=== PATIENT | male | born 1965 | race Caucasian/White ===

== ENCOUNTER 2022-10-29 09:14 | Outpatient (OUT) | payer OTHER, SELFPAY ==
--- NOTE | 2022-10-29 09:30 | XR_ITS ---
[address] [address] Patient Name: PHYLLIS VILLALOBOS MRN: [id number] date: 1965 Sex: M Assigned Patient Location: RAD Current Patient Location: RAD Accession/Order Number: [id number] Exam Date: 10/29/2022 09:29 Report Date: 10/29/2022 10:10 At the request of: MATT JOY Procedure: XR foot LT min 3V PROCEDURE: XR ankle LT min 3V, XR foot LT min 3V COMPARISON: 10/22/2022 HISTORY: LEFT ANKLE PAIN FINDINGS: BONES:No acute fracture or dislocation. Enthesopathic spurring of the calcaneus, mild at the Achilles, moderate at the plantar aponeurosis SOFT TISSUES:Negative. No visible soft tissue swelling. EFFUSION:None visible. OTHER: Negative. XR/XR foot LT min 3V IMPRESSION: Enthesopathic spurring of the calcaneus No acute abnormality of the foot or ankle Electronically authenticated by: IVIS ROBERSON Date: 10/29/2022 10:10
--- NOTE | 2022-10-29 09:30 | XR_ITS ---
The [address] [address] Patient Name: PHYLLIS VILLALOBOS MRN: [id number] date: 1965 Sex: M Assigned Patient Location: RAD Current Patient Location: RAD Accession/Order Number: [id number] Exam Date: 10/29/2022 09:29 Report Date: 10/29/2022 10:10 At the request of: MATT JOY Procedure: XR ankle LT min 3V PROCEDURE: XR ankle LT min 3V, XR foot LT min 3V COMPARISON: 10/22/2022 HISTORY: LEFT ANKLE PAIN FINDINGS: BONES:No acute fracture or dislocation. Enthesopathic spurring of the calcaneus, mild at the Achilles, moderate at the plantar aponeurosis SOFT TISSUES:Negative. No visible soft tissue swelling. EFFUSION:None visible. OTHER: Negative. XR/XR ankle LT min 3V IMPRESSION: Enthesopathic spurring of the calcaneus No acute abnormality of the foot or ankle Electronically authenticated by: IVIS ROBERSON Date: 10/29/2022 10:10
== END 2022-10-29 09:15 | disposition home or self-care (01) ==
LOC: RAD 09:14
PROVIDERS: Family Provider Family Medicine; PCP Family Medicine; Visit Provider Podiatrist Foot & Ankle Surgery
DX: M25.572 Pain in left ankle and joints of left foot (principal); M77.32 Calcaneal spur, left foot
CPT/HCPCS: 73610; 73630

== ENCOUNTER 2022-11-03 15:37 | Outpatient (RCR) | payer OTHER, SELFPAY | END 2022-11-14 11:23 | disposition home or self-care (01) | LOC: PT 15:37 | PROVIDERS: Family Provider Family Medicine; PCP Family Medicine; Visit Provider Student in an Organized Health Care Education/Training Program | DX: M72.2 Plantar fascial fibromatosis (principal); M79.672 Pain in left foot | CPT/HCPCS: 97010; 97014; 97035; 97110; 97140; 97161 ==

== ENCOUNTER 2022-12-03 07:40 | Outpatient (OUT) | payer OTHER, SELFPAY ==
--- NOTE | 2022-12-03 07:52 | ECG_ITS ---
The [facility] Test Date: 2022-12-03 Pat Name: PHYLLIS VILLALOBOS Department: Room: - Gender: Male Digital Account Manager: : 1965 Requested By: MATT JOY Order Number: [id number] Reading MD: NATY RODRIGUEZ Measurements Intervals [place] Rate: 67 P: 62 ND: 172 QRS: -10 QRSD: 96 T: 27 QT: 378 QTc: 401 Interpretive Statements SINUS RHYTHM Baseline artifact present No previous ECG available for comparison Electronically Signed On 12-04-2022 7:07:14 EDT by NATY RODRIGUEZ
--- NOTE | 2022-12-03 08:47 | P.GSHP_ITS ---
History of Present Illness History of Present Illness Chief complaint: planter fascial fibromatosis Narrative: Patient presents for preadmission testing. Please see HPI from Dr. Bhat dated 11/19/2022. Review of Systems ROS Narrative REVIEW OF SYSTEMS: Negative except as stated in HPI, ten or more systems reviewed. Constitutional: No fever , chills, weakness ENT: No sore throat or epistaxis Cardiovascular: No edema, chest pain, palpitations, or activity intolerance Respiratory: No shortness of breath, cough, or wheezing Gastrointestinal: No abdominal pain, constipation, diarrhea, or vomiting Genitourinary: No dysuria or hematuria Neurological: No numbness, tingling, weakness, or headache Psychiatric: No mood changes PFSH PFS Medical History (Updated 12/03/22 @ 08:31 by Rita Holt NP) Surgical History (Updated 12/03/22 @ 08:31 by Rita Holt NP) Family History (Updated 12/03/22 @ 08:31 by Rita Holt NP) Other Family history of aneurysm Family history of diabetes mellitus Family history of heart disease Family history of hypertension Family history of lung cancer Family history of myocardial infarction Social History (Updated 12/03/22 @ 08:23 by Rita Holt NP) Within the past year, how often did you have a drink containing alcohol: 2-4 times a month Smoking status: Current every day smoker What tobacco products do you use: cigarettes Pack-years instructions: Please document either packs per day or cigarettes per day in order for pack years to calculate correctly. If using both packs per day and cigarettes per day, please make sure that they denote the same thing. If they differ, pack- years will calculate based on packs per day. 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[employer] Highest level of school completed/degree received: high school graduate Meds Home Medications and Allergies Home Medications Medication Instructions Recorded Confirmed Type tizanidine 4 mg capsule 4 mg PO BID PRN muscle spasticity 12/03/22 12/03/22 History Allergies Allergy/AdvReac Type Severity Reaction Status Date / Time metoclopramide [From Reglan] Allergy Hives Verified 12/03/22 08:20 NSAIDS (Non-Steroidal Allergy acid reflux Verified 12/03/22 08:20 Anti-Inflamma Exam Narrative Exam Narrative: Constitutional: Awake, alert, comfortable, well-appearing, nontoxic, interactive, vital signs as charted Head: Normocephalic, atraumatic Neck: Supple, normal appearance, normal range of motion, no meningeal signs, no lymphadenopathy Respiratory: No respiratory distress, breath sounds clear Cardiovascular: Regular rate and rhythm, strong and regular heart tones Psychiatric: Oriented ?3, normal affect Assessment and Plan Assessment and Plan (1) Ankle contracture: (2) Ankle pain: (3) Foot pain: (4) Plantar fascial fibromatosis: Plan Left endoscopic plantar fasciotomy, gastrocnemius recession scheduled with Dr. Bhat 12/11/2022.
== END 2022-12-03 07:41 | disposition home or self-care (01) ==
PROVIDERS: Family Provider Family Medicine; PCP Family Medicine; Visit Provider Podiatrist Foot & Ankle Surgery
DX: Z01.810 Encounter for preprocedural cardiovascular examination (principal); M72.2 Plantar fascial fibromatosis; M24.572 Contracture, left ankle
CPT/HCPCS: 93005; G0463

== ENCOUNTER 2022-12-11 06:32 | Day surgery (SDC) | payer OTHER, SELFPAY ==
[2022-12-03 08:46] VITALS: BP 127/78; PULSE 75; RESP 16; TEMP 36.4; O2SAT 97; BMI 26.3
[2022-12-11] VITALS (12 sets, daily range): BP systolic 108–150; BP diastolic 80–96; PULSE 57–73; RESP 12–24; TEMP 36.1–36.4; O2SAT 94–98; BMI 26.0
[2022-12-11 07:03] LABS: Glucometer 108 mg/dL (74-106)
[2022-12-11] MEDS: LACTATED RINGER'S SOLUTION 1,000 ML 50 ML IV (07:03)
[2022-12-11] MEDS: CEFAZOLIN SODIUM/DEXTROSE,ISO 2 GM/50 ML PIGGYBACK IV (07:30)
[2022-12-11] MEDS: BUPIVACAINE HCL 0.5% PF 50 MG/10 ML VIAL 20 ML INJ (08:23)
[2022-12-11] MEDS: BETAMETHASONE ACE/BETAMETHASONE SOD PHOS 30 MG/5 ML 12 MG IM (08:27)
[2022-12-11 08:53] LABS: Glucometer 103 mg/dL (74-106)
[2022-12-11] MEDS: HYDROMORPHONE HCL 0.5 MG/0.5 ML SYRINGE IV ×2 (09:10→09:17)
--- NOTE | 2022-12-11 09:26 | PC.NURSE ---
Medicated for pain as ordered
--- NOTE | 2022-12-11 09:31 | PC.NURSE ---
Medicated with IV Dilaudid as ordered for pain
--- NOTE | 2022-12-11 09:56 | PM.ORONB ---
Brief Operative Note Date of procedure: 12/11/22 Pre-op diagnosis: left plantar fasciitis, equinus Post-op diagnosis: same as pre-op Procedure: PROCEDURES PERFORMED: left endoscopic plantar fasciotomy, Juma gastrocnemius recession INTRAOPERATIVE FINDINGS: Findings consistent with diagnosis. Plantar fascia thickened and under tension. Ankle joint dorsiflexion prior to the procedure was to neutral but not past with the knee extended. Dorsiflexion improved to ten degrees following gastrocnemius recession. PROCEDURE IN DETAIL: Patient was identified in pre op and consent was reviewed. Correct side and site were identified and marked. Pre-op antibiotics were started. Patient was brought to OR suite and place on table in a supine position. General anesthesia was administered. Tourniquet applied. Operative extremity was prepped and draped in usual sterile fashion. Formal time-out was performed and the foot/ankle were exsanguinated and tourniquet inflated. A longitudinal incision over the medial aspect of the calf two finger breadths posterior to the posterior aspect of tibia was performed. Combination sharp and blunt dissection with all bleeders being coagulated gained access to the gastrocnemius aponeurosis. Once the aponeurosis was isolated a speculum was inserted from the medial to lateral position just superficial to the aponeurosis. The speculum allowed full visualization of the aponeurosis and the foot was held in maximal dorsiflexed position. A fifteen blade was used to transversely incise the gastrocnemius fascia to two separate location (one proximal and one distal) followed by release of the soleus fascia. 10 degrees of ankle joint dorsiflexion was obtained. The area was flushed with copious sterile saline and skin was closed in layers. Stab incision over the medial aspect of the in-step at the glabrous skin junction was used followed by blunt dissection and the medial band of the plantar fascia was identified. Trochar and cannula were then placed medial to lateral. A lateral stab incision was made to allow passage of the trochar and cannula. Camera was inserted into the lateral portal and a hook blade was placed into the medial portal. 50% of the plantar fascia was released and healthy muscle was noted. The site was flushed with saline and instrumentation was removed. Closure with nylon suture was then undertaken. A dry sterile dressing was placed followed by CAM boot. Patient tolerated the procedure and anesthesia well and was transferred to the recovery room with vital signs stable and brisk capillary refill to the toes. POSTOPERATIVE PLAN:Discharge home under family's care Post op instructions provided verbally and written prescription(s) were placed in chart Weightbearing as tolerated in cam boot for three weeks Patient should sleep in cam boot or night splint Follow-up in 1-3 weeks Surgeon: Julio César Bhat [employer] Chemist: Jose Coronado Estimated blood loss (mL): 10 Pathology: none sent Condition: stable Disposition: PACU Preoperative Details Reason for procedure: patient is a 57-year-old male who has had left plantar heel pain for over four months. He initially was treated by an outside hot saw helper with injections, home exercise, NSAIDs and home stretching program. He presented to us for 2nd opinion and initially was treated nonoperatively with physical therapy which only helped his pain by 10-20 percent. An MRI was obtained which confirmed plantar fasciitis. The patient wished to proceed with surgical intervention and he was educated all potential risks and benefits.
--- NOTE | 2022-12-11 09:56 | PC.NURSE ---
Medicated with oral pain medication as ordered for foot pain
== END 2022-12-11 10:30 | disposition home or self-care (01) ==
PROVIDERS: Family Provider Family Medicine; PCP Family Medicine; Visit Provider Podiatrist Foot & Ankle Surgery
PROC: (CPT 27687; principal; 2022-12-11 07:30)
DX: M72.2 Plantar fascial fibromatosis (principal); M24.572 Contracture, left ankle; F17.210 Nicotine dependence, cigarettes, uncomplicated; K21.9 Gastro-esophageal reflux disease without esophagitis; M25.572 Pain in left ankle and joints of left foot
CPT/HCPCS: 27687; 29893; 36415; 82948; J0702; J1170; J2704

== ENCOUNTER 2023-10-22 13:38 | Outpatient (OUT) | payer OTHER, SELFPAY ==
--- NOTE | 2023-10-22 | XR_ITS ---
The [address] [address] Patient Name: PHYLLIS VILLALOBOS MRN: [id number] date: 1965 Sex: M Assigned Patient Location: Current Patient Location: Accession/Order Number: [id number] Exam Date: 10/22/2023 13:40 Report Date: 10/23/2023 04:55 At the request of: MARITZA MURO Procedure: XR foot LT min 3V PROCEDURE: XR foot LT min 3V HISTORY: LEFT FOOT PAIN ; 5th metatarsal pain following injury COMPARISON: XR foot left 10/29/2022 FINDINGS: BONES:New since small ossification along anterior lateral margin of calcaneus. SOFT TISSUES:No visible soft tissue swelling. EFFUSION:None visible. OTHER: Negative. XR/XR foot LT min 3V IMPRESSION: 1. Suspect tiny cortical avulsion fracture from anterior lateral margin of calcaneus. Unremarkable 5th metatarsal. Electronically authenticated by: YOSSI WRIGHT Date: 10/23/2023 04:55
== END 2023-10-22 13:39 | disposition home or self-care (01) ==
PROVIDERS: Family Provider Family Medicine; PCP Family Medicine; Visit Provider Physician Assistant
DX: M72.2 Plantar fascial fibromatosis (principal); M79.672 Pain in left foot
CPT/HCPCS: 73630

== ENCOUNTER 2023-11-10 15:17 | Outpatient (OUT) | payer OTHER, SELFPAY ==
--- NOTE | 2023-11-10 | XR_ITS ---
The [address] [address] Patient Name: PHYLLIS VILLALOBOS MRN: [id number] date: 1965 Sex: M Assigned Patient Location: Current Patient Location: Accession/Order Number: [id number] Exam Date: 11/10/2023 15:23 Report Date: 11/12/2023 06:43 At the request of: MATT JOY Procedure: XR foot LT min 3V PROCEDURE: XR foot LT min 3V HISTORY: LEFT FOOT PAIN ; second metatarsal pain; stress fracture? COMPARISON: None. FINDINGS: BONES:Stable tiny ossification adjacent anterior lateral margin of calcaneus; possibly sequela of remote injury. No acute fracture, dislocation, or periosteal reaction with specific attention to the second metatarsal. SOFT TISSUES:No visible soft tissue swelling. EFFUSION:None visible. OTHER: Negative. XR/XR foot LT min 3V IMPRESSION: 1. No acute bone abnormality or significant degenerative changes to account for patient's symptoms. No findings to suggest stress fracture of second metatarsal. Electronically authenticated by: YOSSI WRIGHT Date: 11/12/2023 06:43
== END 2023-11-10 15:18 | disposition home or self-care (01) ==
LOC: EC 15:17
PROVIDERS: Family Provider Family Medicine; PCP Family Medicine; Visit Provider Podiatrist Foot & Ankle Surgery
DX: M79.672 Pain in left foot (principal)
CPT/HCPCS: 73630

== ENCOUNTER 2024-02-17 13:49 | Outpatient (OUT) | payer OTHER, SELFPAY ==
--- NOTE | 2024-02-17 13:52 | XR_ITS ---
The [address] [address] Patient Name: PHYLLIS VILLALOBOS MRN: [id number] date: 1965 Sex: M Assigned Patient Location: [facility] Current Patient Location: Accession/Order Number: [id number] Exam Date: 02/17/2024 13:58 Report Date: 02/20/2024 07:43 At the request of: MATT JOY Procedure: XR foot RT min 3V PROCEDURE: XR foot RT min 3V HISTORY: Right Foot Pain COMPARISON: None. FINDINGS: BONES:Mild degenerative change of the first metatarsophalangeal joint. Small calcaneal plantar spur. SOFT TISSUES:No visible soft tissue swelling. EFFUSION:None visible. OTHER: Negative. XR/XR foot RT min 3V IMPRESSION: 1. Mild degenerative changes. 2. No acute bone abnormality. Electronically authenticated by: YOSSI WRIGHT Date: 02/20/2024 07:43
--- OUTSIDE RECORDS SUMMARY | 2024-02-17 14:08 | XMS_ITS | CCD ---
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 Role Phone Kevin Calvillo Admitting Unavailable Kevin Calvillo Attending Unavailable Denis Rahman Primary Care Unavailable DO Denis Rahman Primary Care Provider JOE Calvillo Attending Provider Geoffrey Downing Attending Unavailable ALVAREZ TIERNEY Attending Unavailoliver e Clinmanda, Nicki Aleman Attending Unavailable TARASUte Attending Unavailable TRISHAJass Attending Unavailable TRISHAJass Attending Unavailable Clingman, Nicki Aleman Attending Unavailable Clingman, Nicki Aleman Admitting Unavailable AleksValdemar Attending Unavailable NICKI DIALLO Referring Unavailable DIALLO, NICKI Faulkner Attending Unavailable NICKI DIALLO Referring Unavailable Allergies Allergy Classification Reported Allergen(s) Allergy Type Date of Onset Reaction(s) Facility (1 source) Unable to Assess Drug allergy (disorder) [address] [place] [address] Repository (1 source) Metoclopramide; Translations: [Reglan] Drug Allergy [facility] Repository (1 source) NSAIDs; Translations: [NSAIDs] Propensity to adverse reactions (disorder) [facility] Repository (1 source) Prochlorperazine; Translations: [Compazine] Drug Allergy [facility] Repository (1 source) nonsteroidal anti-inflammatory agents; Translations: [nonsteroidal anti-inflammatory agents] Propensity to adverse reactions (disorder) [facility] Repository Results Test Name Value Interpretation Reference Range Facility Pain Mgt Drug Panel, Hi Res, Uron 08-14-2023 6-acetylmorphine (cutoff 20 ng/mL) Not detected [facility] Comment on above: Result Comment: INTE RPRETIVE INFORMATION:6-acetylmorphine, U Positive Cutoff: 20 ng/mL Methodology: Mass Spectrometry 7-Aminoclonazepam (cutoff 40 ng/mL) Not detected [facility] Comment on above: Result Comment: INTE RPRETIVE INFORMATION:7-Aminoclonazepam, U Positive Cutoff: 40 ng/mL Methodology: Mass Spectrometry Mihsr-SG-Kqqsodvqen (cutoff 20 ng/mL) Not detected [facility] Comment on above: Result Comment: INTE RPRETIVE INFORMATION:Vyknx-VI-Zhtbonqrnw, U Positive Cutoff: 20 ng/mL Methodology: Mass Spectrometry Mulkl-CA-Xhfcrfksw (cutoff 20 ng/mL) Not detected [facility] Comment on above: Result Comment: INTE RPRETIVE INFORMATION:Sybra-TY-Dhahbusfm, U Positive Cutoff: 20 ng/mL Methodology: Mass Spectrometry Alprazolam (cutoff 40 ng/mL) Not detected [facility] Comment on above: Result Comment: INTE RPRETIVE INFORMATION:Alprazolam, U Positive Cutoff: 40 ng/mL Methodology: Mass Spectrometry Amphetamine (cutoff 100 ng/mL) Not detected [facility] Comment on above: Result Comment: INTE RPRETIVE INFORMATION:Amphetamine, U Positive Cutoff: 50 ng/mL Methodology: Mass Spectrometry Barbiturates (cutoff 200 ng/mL) Negative [facility] Comment on above: Result Comment: Pres umptive negative by immunoassay. Testing by mass spectrometry is available on request. INTERPRETIVE INFORMATION:Barbiturates Screen, U Positive Cutoff: 200 ng/mL Methodology: Immunoassay Benzoylecgonine Ql (U) Negative [facility] Comment on above: Result Comment: Pres umptive negative by immunoassay. Testing by mass spectrometry is available on request. INTERPRETIVE INFORMATION:Cocaine Screen, U Positive Cutoff: 150 ng/mL Methodology: Immunoassay Buprenorphine (cutoff 5 ng/mL) Not detected [facility] Comment on above: Result Comment: INTE RPRETIVE INFORMATION:Buprenorphine, U Positive Cutoff: 5 ng/mL Methodology: Mass Spectrometry Carisoprodol (cutoff 100 ng/mL) Negative [facility] Comment on above: Result Comment: Pres umptive negative by immunoassay. Testing by mass spectrometry is available on request. INTERPRETIVE INFORMATION: Carisoprodol Screen, U Positive Cutoff: 100 ng/mL Methodology: Immunoassay The carisoprodol immunoassay has cross-reactivity to carisoprodol and meprobamate. Clonazepam (cutoff 20 ng/mL) Not detected [facility] Comment on above: Result Comment: INTE RPRETIVE INFORMATION:Clonazepam, U Positive Cutoff: 20 ng/mL Methodology: Mass Spectrometry Codeine (cutoff 40 ng/mL) Not detected [facility] Comment on above: Result Comment: INTE RPRETIVE INFORMATION: Codeine, U Positive Cutoff: 40 ng/mL Methodology: Mass Spectrometry Creatinine, Urine 26.1 mg/dL [facility]0 [facility] Diazepam (cutoff 50 ng/mL) Not detected [facility] Comment on above: Result Comment: INTE RPRETIVE INFORMATION:Diazepam, U Positive Cutoff: 50 ng/mL Methodology: Mass Spectrometry EER Pain Mgt Drug Panel High Res/EMIT U See Note [facility] Comment on above: Result Comment: Auth orized individuals can access the [employer] Enhanced Report using the following link: [email or web address] Performed By: [facility] [address] [place] [id number] Product Mgr: Sanjiv Diaz MD, PhD CLIA Number: [id number] Ethyl Glucuronide (cutoff 500 ng/mL) Negative [facility] Comment on above: Result Comment: Pres umptive negative by immunoassay. Testing by mass spectrometry is available on request. INTERPRETIVE INFORMATION:Ethyl Glucuronide Screen, U Positive Cutoff: 500 ng/mL Methodology: Immunoassay Fentanyl (cutoff 2 ng/mL) Not detected [facility] Comment on above: Result Comment: INTE RPRETIVE INFORMATION:Fentanyl, U Positive Cutoff: 2 ng/mL Methodology: Mass Spectrometry Gabapentin (cutoff 100 ng/mL) Not detected [facility] Comment on above: Result Comment: INTE RPRETIVE INFORMATION:Gabapentin, U Positive Cutoff: 3,000 ng/mL Methodology: Mass Spectrometry Hydrocodone (cutoff 40 ng/mL) Not detected [facility] Comment on above: Result Comment: INTE RPRETIVE INFORMATION:Hydrocodone, U Positive Cutoff: 40 ng/mL Methodology: Mass Spectrometry Hydromorphone (cutoff 40 ng/mL) Not detected [facility] Comment on above: Result Comment: INTE RPRETIVE INFORMATION:Hydromorphone, U Positive Cutoff: 20 ng/mL Methodology: Mass Spectrometry Lorazepam (cutoff 60 ng/mL) Not detected [facility] Comment on above: Result Comment: INTE RPRETIVE INFORMATION:Lorazepam, U Positive Cutoff: 60 ng/mL Methodology: Mass Spectrometry Marijuana Metabolite (cutoff 20 ng/mL) Negative [facility] Comment on above: Result Comment: Pres umptive negative by immunoassay. Testing by mass spectrometry is available on request. INTERPRETIVE INFORMATION: THC (Cannabinoids) Screen, U Positive Cutoff: 50 ng/mL Methodology: Immunoassay MDA (cutoff 200 ng/mL) Not detected [facility] Comment on above: Result Comment: INTE RPRETIVE INFORMATION:MDA, U Positive Cutoff: 200 ng/mL Methodology: Mass Spectrometry MDEA-Blossom (cutoff 200 ng/mL) Not detected [facility] Comment on above: Result Comment: INTE RPRETIVE INFORMATION:MDEA, U Positive Cutoff: 200 ng/mL Methodology: Mass Spectrometry MDMA-Ecstasy (cutoff 200 ng/mL) Not detected [facility] Comment on above: Result Comment: INTE RPRETIVE INFORMATION:MDMA, U Positive Cutoff: 200 ng/mL Methodology: Mass Spectrometry Meperidine metabolite (cutoff 50 ng/mL) Not detected [facility] Comment on above: Result Comment: INTE RPRETIVE INFORMATION:Meperidine metabolite, U Positive Cutoff: 50 ng/mL Methodology: Mass Spectrometry Methadone Ql (U) Negative [facility] Comment on above: Result Comment: Pres umptive negative by immunoassay. Testing by mass spectrometry is available on request. INTERPRETIVE INFORMATION: Methadone Screen, U Positive Cutoff: 150 ng/mL Methodology: Immunoassay Methamphetamine (cutoff 400 ng/mL) Not detected [facility] Comment on above: Result Comment: INTE RPRETIVE INFORMATION:Methamphetamine, U Positive Cutoff: 200 ng/mL Methodology: Mass Spectrometry Methylphenidate (cutoff 100 ng/mL) Not detected [facility] Comment on above: Result Comment: INTE RPRETIVE INFORMATION:Methylphenidate, U Positive Cutoff: 100 ng/mL Methodology: Mass Spectrometry Midazolam (cutoff 20 ng/mL) Not detected [facility] Comment on above: Result Comment: INTE RPRETIVE INFORMATION:Midazolam, U Positive Cutoff: 20 ng/mL Methodology: Mass Spectrometry Morphine (cutoff 20 ng/mL) Not detected [facility] Comment on above: Result Comment: INTE RPRETIVE INFORMATION:Morphine, U Positive Cutoff: 20 ng/mL Methodology: Mass Spectrometry Naloxone (cutoff 100 ng/mL) Not detected [facility] Comment on above: Result Comment: INTE RPRETIVE INFORMATION:Naloxone, U Positive Cutoff: 100 ng/mL Methodology: Mass Spectrometry Norbuprenorphine (cutoff 20 ng/mL) Not detected [facility] Comment on above: Result Comment: INTE RPRETIVE INFORMATION:Norbuprenorphine, U Positive Cutoff: 20 ng/mL Methodology: Mass Spectrometry Nordiazepam (cutoff 50 ng/mL) Not detected [facility] Comment on above: Result Comment: INTE RPRETIVE INFORMATION:Nordiazepam, U Positive Cutoff: 50 ng/mL Methodology: Mass Spectrometry Norfentanyl (cutoff 2 ng/mL) Not detected [facility] Comment on above: Result Comment: INTE RPRETIVE INFORMATION:Norfentanyl, U Positive Cutoff: 2 ng/mL Methodology: Mass Spectrometry Norhydrocodone (cutoff 100 ng/mL) Not detected [facility] Comment on above: Result Comment: INTE RPRETIVE INFORMATION:Norhydrocodone, U Positive Cutoff: 100 ng/mL Methodology: Mass Spectrometry Noroxycodone (cutoff 100 ng/mL) Not detected [facility] Comment on above: Result Comment: INTE RPRETIVE INFORMATION:Noroxycodone, U Positive Cutoff: 100 ng/mL Methodology: Mass Spectrometry Noroxymorphone (cutoff 100 ng/mL) Not detected [facility] Comment on above: Result Comment: INTE RPRETIVE INFORMATION:Noroxymorphone, U Positive Cutoff: 100 ng/mL Methodology: Mass Spectrometry Oxazepam (cutoff 50 ng/mL) Not detected [facility] Comment on above: Result Comment: INTE RPRETIVE INFORMATION:Oxazepam, U Positive Cutoff: 50 ng/mL Methodology: Mass Spectrometry Oxycodone (cutoff 40 ng/mL) Not detected [facility] Comment on above: Result Comment: INTE RPRETIVE INFORMATION:Oxycodone, U Positive Cutoff: 40 ng/mL Methodology: Mass Spectrometry Oxymorphone (cutoff 40 ng/mL) Not detected [facility] Comment on above: Result Comment: INTE RPRETIVE INFORMATION:Oxymorphone, U Positive Cutoff: 40 ng/mL Methodology: Mass Spectrometry Pain Management Drug Panel See Below [facility] Comment on above: Result Comment: Meth odology: Qualitative Enzyme Immunoassay and Qualitative Liquid Chromatography-Tandem Mass Spectrometry, Quantitative Spectrophotometry The absence of expected drug(s) and/or drug metabolite(s) may indicate non-compliance, inappropriate timing of specimen collection relative to drug administration, poor drug absorption, diluted/adulterated urine, or limitations of testing. The concentration must be greater than or equal to the cutoff to be reported as present. If specific drug concentrations are required, contact the laboratory within two weeks of specimen collection to request quantification by a second analytical technique. Interpretive questions should be directed to the laboratory. Results based on immunoassay detection that do not match clinical expectations should be interpreted with caution. Confirmatory testing by mass spectrometry for immunoassay-based results is available, if ordered within two weeks of specimen collection. Additional charges apply. For medical purposes only; not valid for forensic use. This test was developed and its performance characteristics determined by [facility]. It has not been cleared or approved by the [place] Food and Drug Administration. This test was performed in a CLIA certified laboratory and is intended for clinical purposes. PCP (cutoff 25 ng/mL) Negative [facility] Comment on above: Result Comment: Pres umptive negative by immunoassay. Testing by mass spectrometry is available on request. INTERPRETIVE INFORMATION:Phencyclidine Screen, U Positive Cutoff: 25 ng/mL Methodology: Immunoassay Phentermine (cutoff 100 ng/mL) Not detected [facility] Comment on above: Result Comment: INTE RPRETIVE INFORMATION:Phentermine, U Positive Cutoff: 100 ng/mL Methodology: Mass Spectrometry Pregabalin (cutoff 100 ng/mL) Not detected [facility] Comment on above: Result Comment: INTE RPRETIVE INFORMATION:Pregabalin, U Positive Cutoff: 3,000 ng/mL Methodology: Mass Spectrometry Tapentadol (cutoff 100 ng/mL) Not detected [facility] Comment on above: Result Comment: INTE RPRETIVE INFORMATION:Tapentadol, U Positive Cutoff: 100 ng/mL Methodology: Mass Spectrometry Dszcfnhofh-n-Ymxj (cutoff 200 ng/mL) Not detected [facility] Comment on above: Result Comment: INTE RPRETIVE INFORMATION:Slpzomtyww-c-Fyog, U Positive Cutoff: 200 ng/mL Methodology: Mass Spectrometry Temazepam (cutoff 50 ng/mL) Not detected [facility] Comment on above: Result Comment: INTE RPRETIVE INFORMATION:Temazepam, U Positive Cutoff: 50 ng/mL Methodology: Mass Spectrometry Tramadol (cutoff 200 ng/mL) Negative [facility] Comment on above: Result Comment: Pres umptive negative by immunoassay. Testing by mass spectrometry is available on request. INTERPRETIVE INFORMATION:Tramadol Screen, U Positive Cutoff: 100 ng/mL Methodology: Immunoassay Zolpidem (cutoff 20 ng/mL) Not detected [facility] Comment on above: Result Comment: INTE RPRETIVE INFORMATION:Zolpidem, U Positive Cutoff: 20 ng/mL Methodology: Mass Spectrometry Ambulatory Visit Summaryon 0 08-06-2023 Ambulatory Visit Summary PHYLLIS SILVESTRE :1965 Visit Date:08/06/2023 Ambulatory Visit Instructions Your Diagnosis Acute bronchitis with wheezing BMI 25.0-25.9,adult Over weight Your Care Team Attending Physician - Russell MCINTOSH, Nicki Aleman Primary Care Physician - Denis RAHMAN DO This Is Your Medications List albuterol (Ventolin HFA 90 mcg/inh Aerosol-Adpt) amoxicillin-clavulanat e (Augmentin 875 mg oral tablet) predniSONE (predniSONE 20 mg Tab) tizanidine (tiZANidine 4 mg Tab) Procedures Performed Radiofrequency ablation of medial branch of lumbar nerve using fluoroscopic guidance (11/21/2015), Radiofrequency ablation of medial branch of lumbar nerve using fluoroscopic guidance (11/07/2015), Medial Branch Block (03/07/2015), Injection of facet joint using fluoroscopic guidance (03/24/2014), Epidural injection of cervical spine using fluoroscopic guidance (05/04/2013), Radiofrequency ablation of medial branch of lumbar nerve using fluoroscopic guidance (03/23/2013), Epidural injection of cervical spine using fluoroscopic guidance (01/26/2013), Epidural injection of cervical spine using fluoroscopic guidance (01/12/2013), Epidural injection of cervical spine using fluoroscopic guidance (12/20/2012), Injection of facet joint using fluoroscopic guidance (12/18/2012), Injection of facet joint using fluoroscopic guidance (11/03/2012), Epidural injection of lumbar spine using fluoroscopic guidance (06/23/2012), Anterior Cervical disectomy with Fusion C 65-7, Arthroscopy of knee, Hernia repair, Radial keratotomy, RADIO FREQUENCY ABLATIONS, STEROID EPIDURAL INJECTIONS. Discharge Vitals Temperature (Oral) 37.1 ?C Heart Rate (Peripheral) 64 Blood Pressure 130/88 Height 172.7 cm Height 68 in Weight 77.1 kg Weight 169.62 lb BMI 25.85 Medications What How Much When Why Instructions Unchanged albuterol (Ventolin HFA 90 mcg/ inh Aerosol-Adpt) 2 Puffs Inhalation Every 4 hours as needed for for wheezing Sinusitis Bronchitis BMI 25.0-25.9,adult Duration: 7 Days Unchanged amoxicillin-clavulanat e (Augmentin 875 mg oral tablet) 1 Tablets By Mouth Every 12 hours Sinusitis Bronchitis BMI 25.0-25.9,adult Duration: 10 Days Unchanged predniSONE (predniSONE 20 mg Tab) 2 Tablets By Mouth Every day Sinusitis Bronchitis BMI 25.0-25.9,adult Duration: 5 Days Unchanged tizanidine (tiZANidine 4 mg Tab) 1 Tablets By Mouth 3 times a day as needed for Spasm Medications and Immunizations Administered Given DuoNeb 2.5 mg-0.5 mg/3 mL Soln-Inh, 3 mL, NEB. For: Allergies Compazine (unknown) NSAIDs (Esophageal Reflux) Reglan Problems Ongoing - Any problem that you are currently receiving treatment for. Acid reflux Arthritis BMI 25.0-25.9,adult Carpal tunnel syndrome Cervical disc prolapse with radiculopathy Cervical spinal stenosis Cough with fever COVID-19 virus infection Extremity numbness Gout flare Otalgia of right ear Other sleep disorders Over weight Periorbital edema Periorbital erythema Right foot pain Sacroiliac pain Situational anxiety Smoker Sore throat TMJ arthralgia Witnessed episode of apnea Historical - Any problem that you are no longer receiving treatment for. herniated disc Patient Survey You may receive a survey via text or e-mail asking about your office visit. Please share your experience with us by completing your survey. We appreciate your feedback and thank you for choosing us for your care. [facility] Medicine Office/Clini c Noteon 08-06-2023 Family Medicine Office/Clinic Note Chief Complaint pt here for bronchitis HPI Staff pt was seen Thursday for Bronchitis symptom onset- 2 weeks Headache- no sinus congestion- yes Cough- productive cough Chest congestion- yes SOB- yes Fever/chills- no Body aches- slight medications- Prednisone, antibiotic, inhaler feels worse since starting medication. History of Present Illness Reviewed and agree with above documented HPI by medical office secretary. Patient is a 58-year-old male who comes in with complaint of continued symptoms of bronchitis. He was seen last 08/02/2023 for symptoms of bronchitis and was treated with Augmentin, albuterol, prednisone. Patient's complaint today is that symptoms have been going on for 2 weeks he does not feel any better and states that he is feeling worse.. Also complains of sinus congestion, productive cough, chest congestion, shortness of breath, slight bodyaches. He denies headache, fever, chills, nausea, vomiting, diarrhea, exposure to influenza/COVID/strep. He states he is still taking the antibiotic, Augmentin, and prednisone as instructed. States he is still using the albuterol inhaler as instructed. In addition to these he has been using cough medicine with Mucinex. He states that nothing seems to be making it better. He does have a follow-up with his PCP this coming Thursday. Patient has a history of 1 pack a day smoker. Patient states that his coughing occurs when he is upright but does not occur when he is laying flat. Review of Systems PHQ Score Initial Depression Screen Score: 0 SCORE Physical Exam Vitals & Measurements T: 37.1 ?C(Oral) HR: 64(Peripheral) BP: 130/88 SpO2: 99% HT: 68 in HT: 172.7 cm WT: 77.1 kg WT: 169.62 lb BMI: 25.85 General: Well developed, well nourished, in no acute distress, does not appear ill or septic Eyes: Pupils equal, round, and reactive to light. Conjunctivae and sclerae normal, and extraocular movements intact Ears: No deformity or lesion of external ear. Canals and TM appear normal bilaterally. TM?s intact, not inflamed, with normal light reflex. Hearing grossly normal to conversational speech Nose: moderate nasal mucosa inflammation and edema Mouth: Mucous membranes moist. Normal oropharynx, and posterior pharynx without lesions or exudates. Tongue normal Neck: no adenopathy Lungs: Wheezes and rhonchi heard throughout. Cardio: regular rate and rhythm, no murmur Abdomen: Soft, non-distended, non-tender Musculoskeletal: No deformity or scoliosis noted. Normal range of motion. Joints normal. No erythema, edema, effusion, or ecchymosis Extremity: No clubbing, cyanosis, edema, or deformity, with normal ROM in both upper and lower bilateral extremities Neurologic: Grossly normal Skin: No rashes, ulcerations, or suspicious lesions Mental Status: Alert and oriented x3. Normal speech and thought content, normal mood and affect Assessment/Plan Patient stable x-ray was completed on patient. Results of x-ray were shared with patient. Results of x-ray were: (08/06/2023 09:48 EDT XR Chest 2 Views) IMPRESSION: NO EVIDENCE OF ACTIVE CARDIOPULMONARY DISEASE. POSSIBLE COPD, WHICH IS BEST EVALUATED CLINICALLY. FINDINGS: There is no developing infiltrate, pleural effusion, vascular congestion, pneumothorax, cardiomegaly, or displaced fractures identified. Mild hyperinflation and coarsening of the bronchovascular structures suggestive COPD appear unchanged from the prior study. 1. Acute bronchitis with wheezing (J20.9: Acute bronchitis, unspecified) You were given a breathing treatment called Uzmab. Lung sounds were much better after treatment. Please keep follow-up with your primary care provider on Thursday. You were seen and evaluated today in regards to cough and wheezing. You had wheezing on exam today. Discussed with you in regards to treatment for bronchitis. Continue prednisone, steroid 40 mg daily take as directed. Continue albuterol inhaler, 2 puffs every 4-6 hours as needed for wheezing. Cough, and viral symptoms may last anywhere form 7-14 days, or linger longer. Continue to monitor. If you develop high spiking fever, shortness of breath ,or chest pain, you should go to the emergency department for reevaluation. You may return if needed. Ordered: albuterol-ipratropium, 3 mL, Soln-Inh, NEB, Once, Stop date 08/06/23 9:48:00 EDT, Routine, Start date 08/06/23 9:48:00 EDT 2. BMI 25.0-25.9,adult (Z68.25: Body mass index [BMI] 25.0-25.9, adult) The standard range for ages 18 and older is >=18.5 and < 25 kg/m2. Your BMI today was above this range, this falls in the overweight to obese category and there are medical benefits to weight loss. We can offer counselling, referral, and/or medical support in addressing this problem. Your BMI and weight management will be followed at subsequent visits. Ordered: albuterol, 2 puff(s), Inhalation, q4hr for wheezing for 7 day(s), 8 gm, Refill(s) 0, [id number], 172.7, cm, 08/06/23 9:23:00 EDT, Height/Length Dosing, 77.1, kg, (more content not included)... Normal [facility] Comment on above: Result Comment: Elec tronically Signed By: Russell MCINTOSH, Nicki Aleman\.br\Date and Time Signed: 08/06/23 11:13 EDT Patient Educationon 08-06-19 Patient Education Nutrition BMI for Adults What is BMI? Body mass index (BMI) is a number that is calculated from a person's weight and height. BMI can help estimate how much of a person's weight is composed of fat. BMI does not measure body fat directly. Rather, it is an alternative to procedures that directly measure body fat, which can be difficult and expensive. BMI can help identify people who may be at higher risk for certain medical problems. What are BMI measurements used for? BMI is used as a screening tool to identify possible weight problems. It helps determine whether a person is obese, overweight, a healthy weight, or underweight. BMI is useful for: ? Identifying a weight problem that may be related to a medical condition or may increase the risk for medical problems. ? Promoting changes, such as changes in diet and exercise, to help reach a healthy weight. BMI screening can be repeated to see if these changes are working. How is BMI calculated? BMI involves measuring your weight in relation to your height. Both height and weight are measured, and the BMI is calculated from those numbers. This can be done either in [place] or metric measurements. Note that charts and online BMI calculators are available to help you find your BMI quickly and easily without having to do these calculations yourself. To calculate your BMI in [place] measurements: 1. Measure your weight in pounds (lb). 2. Multiply the number of pounds by 703. ? For example, for a person who weighs 180 lb, multiply that number by 703, which equals 126,540. 3. Measure your height in inches. Then multiply that number by itself to get a measurement called inches squared. ? For example, for a person who is 70 inches tall, the inches squared measurement is 70 inches x 70 inches, which equals 4,900 inches squared. 4. Divide the total from step 2 (number of lb x 703) by the total from step 3 (inches squared): 126,540 ? 4,900 = 25.8. This is your BMI. To calculate your BMI in metric measurements: 1. Measure your weight in kilograms (kg). 2. Measure your height in meters (m). Then multiply that number by itself to get a measurement called meters squared. ? For example, for a person who is 1.75 m tall, the meters squared measurement is 1.75 m x 1.75 m, which is equal to 3.1 meters squared. 3. Divide the number of kilograms (your weight) by the meters squared number. In this example: 70 ? 3.1 = 22.6. This is your BMI. What do the results mean? BMI charts are used to identify whether you are underweight, normal weight, overweight, or obese. The following guidelines will be used: ? Underweight: BMI less than 18.5. ? Normal weight: BMI between 18.5 and 24.9. ? Overweight: BMI between 25 and 29.9. ? Obese: BMI of 30 or above. Keep these notes in mind: ? Weight includes both fat and muscle, so someone with a muscular build, such as an athlete, may have a BMI that is higher than 24.9. In cases like these, BMI is not an accurate measure of body fat. ? To determine if excess body fat is the cause of a BMI of 25 or higher, further assessments may need to be done by a health care provider. ? BMI is usually interpreted in the same way for men and women. Where to find more information For more information about BMI, including tools to quickly calculate your BMI, go to these websites: ? Centers for Disease Control and Prevention: www.cdc.gov ? [place] [employer]: www.heart.org ? National Heart, Lung, and Blood [place]: www.nhlbi.nih.gov Summary ? Body mass index (BMI) is a number that is calculated from a person's weight and height. ? BMI may help estimate how much of a person's weight is composed of fat. BMI can help identify those who may be at higher risk for certain medical problems. ? BMI can be measured using [place] measurements or metric measurements. ? BMI charts are used to identify whether you are underweight, normal weight, overweight, or obese. This information is not intended to replace advice given to you by your health care provider. Make sure you discuss any questions you have with your health care provider. Document Revised: 12/14/2019 Document Reviewed: 10/21/2019 [employer] Patient Education ? 2022 [employer]r. Pulmonary Medicine Acute Bronchitis, Adult Acute bronchitis is when air tubes in the lungs (bronchi) suddenly get swollen. The condition can make it hard for you to breathe. In adults, acute bronchitis usually goes away within 2 weeks. A cough caused by bronchitis may last up to 3 weeks. Smoking, allergies, and asthma can make the condition worse. What are the causes? ? Germs that cause cold and flu (viruses). The most common cause of this condition is the virus that causes the common cold. ? Bacteria. ? Substances that bother (irritate) the lungs, including: ? Smoke from cigarettes and other types of tobacco. ? Dust and pollen. ? Fume (more content not included)... Normal [facility] XR Chest 2 Viewson 4 XR Chest 2 Views Exam Date/Time: 08/06/2023 09:48 EDT Reason for Exam: Cough Report IMPRESSION: NO EVIDENCE OF ACTIVE CARDIOPULMONARY DISEASE. POSSIBLE COPD, WHICH IS BEST EVALUATED CLINICALLY. EXAM: XR Chest 2 Views DATE: 08/06/2023 9:47 AM CLINICAL HISTORY: Cough. COMPARISON: 10/29/2021 TECHNIQUE: Upright PA and lateral radiographs of the chest were obtained. FINDINGS: There is no developing infiltrate, pleural effusion, vascular congestion, pneumothorax, cardiomegaly, or displaced fractures identified. Mild hyperinflation and coarsening of the bronchovascular structures suggestive COPD appear unchanged from the prior study. Ordering Provider: Nicki Wells FINAL REPORT Dictated: 08/06/2023 9:53 am Amado Contreras MD Signed (Electronic Signature): 08/06/2023 9:53 am Signed by: Amado Contreras MD Transcribed by: SONI Technologist: DIOMEDES Technical Comments Radiation Dose: Ka,r in mGy = n/a DAP = n/a Normal Hernandez [facility] Ambulatory Visit Summaryon 0 08-02-2023 Ambulatory Visit Summary PHYLLIS SILVESTRE :1965 Visit Date:08/02/2023 Ambulatory Visit Instructions Your Diagnosis Sinusitis, Sinusitis Bronchitis BMI 25.0-25.9,adult Your Care Team Attending Physician - Geoffrey Downing PA-C Primary Care Physician - Denis RAHMAN DO This Is Your Medications List albuterol (Ventolin HFA 90 mcg/inh Aerosol-Adpt) amoxicillin-clavulanat e (Augmentin 875 mg oral tablet) predniSONE (predniSONE 20 mg Tab) Contact prescribing physician if questions or concerns tizanidine (tiZANidine 4 mg Tab) Procedures Performed Radiofrequency ablation of medial branch of lumbar nerve using fluoroscopic guidance (11/21/2015), Radiofrequency ablation of medial branch of lumbar nerve using fluoroscopic guidance (11/07/2015), Medial Branch Block (03/07/2015), Injection of facet joint using fluoroscopic guidance (03/24/2014), Epidural injection of cervical spine using fluoroscopic guidance (05/04/2013), Radiofrequency ablation of medial branch of lumbar nerve using fluoroscopic guidance (03/23/2013), Epidural injection of cervical spine using fluoroscopic guidance (01/26/2013), Epidural injection of cervical spine using fluoroscopic guidance (01/12/2013), Epidural injection of cervical spine using fluoroscopic guidance (12/20/2012), Injection of facet joint using fluoroscopic guidance (12/18/2012), Injection of facet joint using fluoroscopic guidance (11/03/2012), Epidural injection of lumbar spine using fluoroscopic guidance (06/23/2012), Anterior Cervical disectomy with Fusion C 65-7, Arthroscopy of knee, Hernia repair, Radial keratotomy, RADIO FREQUENCY ABLATIONS, STEROID EPIDURAL INJECTIONS. Discharge Vitals Temperature (Oral) 36.7 ?C Heart Rate (Peripheral) 72 Blood Pressure 124/76 Height 172.7 cm Height 68 in Weight 77 kg Weight 169.4 lb BMI 25.82 What to do next You Need to Schedule the Following Appointments Follow Up with Denis RAHMAN DO When: Where: [address] [facility] [place] [address]- Medications What How Much When Why Instructions New albuterol (Ventolin HFA 90 mcg/ inh Aerosol-Adpt) 2 Puffs Inhalation Every 4 hours as needed for for wheezing Sinusitis Bronchitis BMI 25.0-25.9,adult Duration: 7 Days Pickup at [facility]/pharmacy #[id number] New amoxicillin-clavulanat e (Augmentin 875 mg oral tablet) 1 Tablets By Mouth Every 12 hours Sinusitis Bronchitis BMI 25.0-25.9,adult Duration: 10 Days Pickup at [facility]/pharmacy #[id number] New predniSONE (predniSONE 20 mg Tab) 2 Tablets By Mouth Every day Sinusitis Bronchitis BMI 25.0-25.9,adult Duration: 5 Days Pickup at [facility]/pharmacy #[id number] Unchanged tizanidine (tiZANidine 4 mg Tab) 1 Tablets By Mouth 3 times a day as needed for Spasm Contact prescribing physician if questions or concerns [id number] [address] [place], [place] [phone] Allergies Compazine (unknown) NSAIDs (Esophageal Reflux) Reglan Problems Ongoing - Any problem that you are currently receiving treatment for. Acid reflux Arthritis BMI 26.0-26.9,adult Carpal tunnel syndrome Cervical disc prolapse with radiculopathy Cervical spinal stenosis Cough with fever COVID-19 virus infection Extremity numbness Gout flare Otalgia of right ear Other sleep disorders Periorbital edema Periorbital erythema Right foot pain Sacroiliac pain Situational anxiety Smoker Sore throat TMJ arthralgia Witnessed episode of apnea Historical - Any problem that you are no longer receiving treatment for. herniated disc Patient Survey You may receive a survey via text or e-mail asking about your office visit. Please share your experience with us by completing your survey. We appreciate your feedback and thank you for choosing us for your care. Addison Hernandez [facility] Family Medicine Office/Clini c Noteon 08-02-2023 Family Medicine Office/Clinic Note Chief Complaint Current pt cough, chest congestion, sinus congestion, chills HPI Staff 58 yo male here today with cough, congestion Symptoms began 2 wks ago with allergies- Thursday started into like bronchitis Complains of cough, chest congestion, sinus congestion, SOB, wheezing, chills, Pt has been taking OTC cold med History of Present Illness I have reviewed and verified the staff HPI to be accurate for this encounter. Portions of this record have been created with voice recognition software. Occasional wrong-word or ?eafxt-u-lvbx? substitutions may have occurred due to the inherent limitations of voice recognition software. 58-year-old male presents today with chief complaint of cough and congestion. Symptom onset x 2 weeks ago with allergies. States last Thursday started with worsening cough similar to like a bronchitis. Complains today of cough chest congestion sinus congestion wheezing chills. States he has been taking izpq-ddd-dfhxolx cold medication without much relief at this point. So he came in for further evaluation today. Patient denies any history of asthma or COPD. States he is a daily smoker about 1 pack/day. States 2 weeks ago he developed allergy-like symptoms states he does have allergy to pollen. States last Thursday however he began feeling worse states increase in nasal congestion, facial pressure states he went through this week hoping to get better but states he then developed wheezing so came in for further evaluation as he has had bronchitis in the past. Denies any fever or chills in the past several days with symptoms. Denies ear pain but states ear pressure. He has no other concerns at this time. Review of Systems PHQ Score Initial Depression Screen Score: 0 SCORE ROS negative unless otherwise stated in HPI. Physical Exam Vitals & Measurements T: 36.7 ?C(Oral) HR: 72(Peripheral) BP: 124/76 SpO2: 95% HT: 68 in HT: 172.7 cm WT: 77 kg WT: 169.4 lb BMI: 25.82 General: Well developed, well nourished, in no acute distress Eyes: Bilateral conjunctiva wnl no injection Ears: Bilateral TMs are wnl. No erythema or bulging. Bilateral external auditory canals are wnl no erythema or edema. Nose: moderate nasal mucosa inflammation and edema no active drainage, deformity, or lesion Mouth: not assessed Neck: not assessed Lungs: Lungs sounds with expiratory wheeze throughout bilateral lung bases. no crackles, or rhonchi. Symmetrical expansion, no signs of respiratory distress. Cardio: S1, S2, regular rhythm. No murmurs, gallops, or rubs. Abdomen: not assessed Musculoskeletal: not assessed Extremity: not assessed Neurologic: not assessed Skin: not assessed Mental Status: Alert and oriented x3. Normal mood and affect Assessment/Plan I spoke with pt in regards to treatment of bronchitis/acute sinusitis with increase in nasal congestion, wheezing. Discussed treatment with augmentin, antibiotic bid x 10 days duration in addition to prednisone, 40 mg daily x 5 days duration as well as albuterol inhaler 2 puffs every 4-6 hours as needed for wheezing. Patient is understanding and in agreement with plan will follow closely with primary care provider in 3 to 5 days for reevaluation to ensure improvement of symptoms otherwise patient understands he may return if needed. He would seek ER for reevaluation if develops any chest pain shortness of breath or difficulty breathing in which patient is understanding. 1. Sinusitis, (J32.9: Chronic sinusitis, unspecified)Sinusitis Given duration of symptoms and exam, will cover for sinusitis with augmentin bid x 10 days. Finish entire course. Fluids/rest, PRN tylenol/ibuprofen for pain and/or fever encouraged. Follow up with PCP if not improving over next 5-7 days with ATB or significantly worsening. Patient verbalized understanding of treatment plan. Ordered: albuterol, 2 puff(s), Inhalation, q4hr for wheezing for 7 day(s), 8 gm, Refill(s) 0, [facility]/pharmacy #[id number], 172.7, cm, 08/02/23 14:01:00 EDT, Height/Length Dosing, 77, kg, 08/02/23 14:01:00 EDT, Weight Dosing amoxicillin-clavulanat e, = 1 tab(s), Oral, q12hr, X 10 day(s), # 20 tab(s), Refills(s) 0, Pharmacy: [facility]/pharmacy #[id number], 172.7, cm, 08/02/23 14:01:00 EDT, Height/Length Dosing, 77, kg, 08/02/23 14:01:00 EDT, Weight Dosing predniSONE, 40 mg = 2 tab(s), Oral, Daily, X 5 day(s), # 10 tab(s), Refills(s) 0, Pharmacy: [facility]/pharmacy #[id number], 172.7, cm, 08/02/23 14:01:00 EDT, Height/Length Dosing, 77, kg, 08/02/23 14:01:00 EDT, Weight Dosing 2. Bronchitis (J40: Bronchitis, not specified as acute or chronic) Please follow-up with your primary care provider in 3 to 5 days. You were seen and evaluated in convenient care today in regards to cough congestion sinus pressure and discomfort. Symptom duration x 2 weeks or 14 days he do have wheezing on examination of bilateral lower lung bases no chills. For acute bronchitis as well as sinusitis with antibiotic Augmentin twice daily x 10 days duration in addition to prednisone, steroid 40 mg daily x 5 (more content not included)... Normal [facility] Comment on above: Result Comment: Elec tronically Signed By: Chang PINO, Geoffrey Khan\.br\Date and Time Signed: 08/02/23 14:24 EDT Patient Educationon 08-02-19 24 Patient Education Infectious Disease Sinus Infection, Adult A sinus infection, also called sinusitis, is inflammation of your sinuses. Sinuses are hollow spaces in the bones around your face. Your sinuses are located: ? Around your eyes. ? In the middle of your forehead. ? Behind your nose. ? In your cheekbones. Mucus normally drains out of your sinuses. When your nasal tissues become inflamed or swollen, mucus can become trapped or blocked. This allows bacteria, viruses, and fungi to grow, which leads to infection. Most infections of the sinuses are caused by a virus. A sinus infection can develop quickly. It can last for up to 4 weeks (acute) or for more than 12 weeks (chronic). A sinus infection often develops after a cold. What are the causes? This condition is caused by anything that creates swelling in the sinuses or stops mucus from draining. This includes: ? Allergies. ? Asthma. ? Infection from bacteria or viruses. ? Deformities or blockages in your nose or sinuses. ? Abnormal growths in the nose (nasal polyps). ? Pollutants, such as chemicals or irritants in the air. ? Infection from fungi. This is rare. What increases the risk? You are more likely to develop this condition if you: ? Have a weak body defense system (immune system). ? Do a lot of swimming or diving. ? Overuse nasal sprays. ? Smoke. What are the signs or symptoms? The main symptoms of this condition are pain and a feeling of pressure around the affected sinuses. Other symptoms include: ? Stuffy nose or congestion that makes it difficult to breathe through your nose. ? Thick yellow or greenish drainage from your nose. ? Tenderness, swelling, and warmth over the affected sinuses. ? A cough that may get worse at night. ? Decreased sense of smell and taste. ? Extra mucus that collects in the throat or the back of the nose (postnasal drip) causing a sore throat or bad breath. ? Tiredness (fatigue). ? Fever. How is this diagnosed? This condition is diagnosed based on: ? Your symptoms. ? Your medical history. ? A physical exam. ? Tests to find out if your condition is acute or chronic. This may include: ? Checking your nose for nasal polyps. ? Viewing your sinuses using a device that has a light (endoscope). ? Testing for allergies or bacteria. ? Imaging tests, such as an MRI or CT scan. In rare cases, a bone biopsy may be done to rule out more serious types of fungal sinus disease. How is this treated? Treatment for a sinus infection depends on the cause and whether your condition is chronic or acute. ? If caused by a virus, your symptoms should go away on their own within 10 days. You may be given medicines to relieve symptoms. They include: ? Medicines that shrink swollen nasal passages (decongestants). ? A spray that eases inflammation of the nostrils (topical intranasal corticosteroids). ? Rinses that help get rid of thick mucus in your nose (nasal saline washes). ? Medicines that treat allergies (antihistamines). ? Hrln-gey-scftsmn pain relievers. ? If caused by bacteria, your health care provider may recommend waiting to see if your symptoms improve. Most bacterial infections will get better without antibiotic medicine. You may be given antibiotics if you have: ? A severe infection. ? A weak immune system. ? If caused by narrow nasal passages or nasal polyps, surgery may be needed. Follow these instructions at home: Medicines ? Take, use, or apply bldg-zez-brtvcdb and prescription medicines only as told by your health care provider. These may include nasal sprays. ? If you were prescribed an antibiotic medicine, take it as told by your health care provider. Do not stop taking the antibiotic even if you start to feel better. Hydrate and humidify ? Drink enough fluid to keep your urine pale yellow. Staying hydrated will help to thin your mucus. ? Use a cool mist humidifier to keep the humidity level in your home above 50%. ? Inhale steam for 10?15 minutes, 3?4 times a day, or as told by your health care provider. You can do this in the bathroom while a hot shower is running. ? Limit your exposure to cool or dry air. Rest ? Rest as much as possible. ? Sleep with your head raised (elevated). ? Make sure you get enough sleep each night. General instructions ? Apply a warm, moist washcloth to your face 3?4 times a day or as told by your health care provider. This will help with discomfort. ? Use nasal saline washes as often as told by your health care provider. ? Wash your hands often with soap and water to reduce your exposure to germs. If soap and water are not available, use hand jig maker. ? Do not smoke. Avoid being around people who are smoking (secondhand smoke). ? Keep all follow-up visits. This is important. Contact a health care provider if: ? You have a fever. ? Your symptoms get (more content not included)... Normal [facility] [place] 06-22-2023 Consent [id number] 0TIFF Normal [facility] Workers' Comp Officeon 06-21 Workers' Comp Office [id number] 301 [id number]#1. 00TIFF Normal [facility] Workers' Comp Office [id number]. 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 States he did not fall to the ground and sustained no other injuries. States when he went home and took his shoe off his ankle blew up and was very painful. At that time he decided he should get it checked out. Went to [facility] - xray was negative for fracture / dislocation. He was diagnosed with left ankle sprain and sent home to follow RICE treatment. Pt states he did not work the following day, but did return on 06/18/23 doing light duty. 06/22/23 ER f/u States today his pain is 2/10, feels much better. States still having mild swelling and bruising remains. c/o mild calf pain that comes and goes. Denies any leg edema or redness. States he has been exercising ankle with ROM exercises. He does not require any assistive device for ambulation. Review of Systems Constitutional: Negative. Musculoskeletal: Left ankle pain. Integumentary: ecchymosis lateral left ankle. Neurologic: Negative. Psychiatric: Negative. Health Status Allergies: Allergic Reactions (Selected) Severity Not Documented Compazine- Unknown. NSAIDs- Esophageal reflux. Reglan- No reactions were documented., Allergies (3) Active Severity Reaction Reglan None Documented NSAIDs Esophageal Reflux Compazine unknown Current medications: (Selected) Prescriptions Prescribed tiZANidine 4 mg Tab: 4 mg = 1 tab(s), Oral, TID, PRN Spasm, # 90 tab(s), Refills(s) 1, Pharmacy: [facility]/pharmacy #[id number], 173, cm, 11/05/20 11:22:00 EDT, Height/Length Dosing, 75.7, kg, 11/05/20 11:32:00 EDT, Weight Dosing, Home Medications (1) Active tiZANidine 4 mg Tab 4 mg = 1 tab(s), PRN, Oral, TID Problem list: Active Problems (22) Acid reflux Arthritis BMI 26.0-26.9,adult Carpal tunnel syndrome Cervical disc prolapse with radiculopathy Cervical spinal stenosis Cough with fever COVID-19 virus infection Extreme obesity Extremity numbness Gout flare Otalgia of right ear Other sleep disorders Periorbital edema Periorbital erythema Right foot pain Sacroiliac pain Situational anxiety Smoker Sore throat TMJ arthralgia Witnessed episode of apnea Histories Past Medical History: Active Cervical spinal stenosis ([id number]) Acid reflux ([id number]) Resolved herniated disc: Resolved. Comments: 07/06/2013 EDT 9:24 EDT Migue Monroe STAFF REGISTERED NURSE, Leah lumbar, sacral area Procedure history: Radiofrequency ablation of medial branch of lumbar nerve using fluoroscopic guidance ([id number]) on 11/21/2015 at 50 Years. Comments: 12/12/2015 14:04 Francy Tong RN right C2-C5 no relief Radiofrequency ablation of medial branch of lumbar nerve using fluoroscopic guidance ([id number]) on 11/07/2015 at 50 Years. Comments: 12/12/2015 14:04 Francy Tong RN LEFT C2-C5 no relief Medial Branch Block on 03/07/2015 at 49 Years. Comments: 04/05/2015 8:43 Jennifer Coelho RN Bilateral C2-C5 after 2 weeks no relief had about 1 1/2 week of relief 80% Injection of facet joint using fluoroscopic guidance ([id number]) on 03/24/2014 at 48 Years. Comments: 12/27/2014 10:42 Karen Huffman RN bilateral C2-5 90-100% Epidural injection of cervical spine using fluoroscopic guidance ([id number]) on 05/04/2013 at 47 Years. Comments: 12/27/2014 10:34 Karen Huffman RN C6-7 0% relief Radiofrequency ablation of medial branch of lumbar nerve using fluoroscopic guidance ([id number]) on 03/23/2013 at 47 Years. Comments: 12/27/2014 10:33 Karen Huffman RN bilateral L2-5 no relief Epidural injection of cervical spine using fluoroscopic guidance ([id number]) on 01/26/2013 at 47 Years. Comments: 12/27/2014 10:32 SANDRO Edmonds RN, Karen C6-7 100% Epidural injection of cervical spine using fluoroscopic guidance ([id number]) on 01/12/2013 at 47 Years. Comments: 12/27/2014 10:31 SANDRO Edmonds RN, Karen C6-7 100% Epidural injection of cervical spine using fluoroscopic guidance ([id number]) on 12/20/2012 at 47 Years. Comments: 12/27/2014 10:31 Karen Huffman RN C6-7 100% Injection of facet joint using fluoroscopic guidance ([id number]) on 12/18/2012 at 47 Years. Comments: 12/27/2014 10:29 Karen Huffman RN bilateral L2-5 MBB 100% x3 Injection of facet joint using fluoroscopic guidance ([id number]) on 11/03/2012 at 47 Years. Comments: 12/27/2014 10:28 Karen Huffman RN bilateral L2-5 MBB 100% for 2-3 hours Epidural injection of lumbar spine using fluoroscopic guidance ([id number]) on (more content not included)... Normal [facility] ED Note-Physicianon 06-20-19 ED Note-Physician Basic Information Time Seen: Jody Mccann PA-C 06/16/2023 18:47 Chief Complaint pt. presents to the ed with c/o left ankle pain after rolling it in a pot hole while working. Pt. workers for [employer]. History of Present Illness 58-year-old male presents to the ED with complaints of left ankle pain. Patient reports he was at work when he stepped off of the car and stepped into a pothole, rolling his ankle. Did not hit his head, no other pain or injuries. Patient complaining of pain to the outside aspect of his left ankle. Pain worse with ambulation and with bearing weight. Denies any knee pain. No weakness, numbness, tingling of the extremity. Patient otherwise healthy. Review of Systems All organ systems are reviewed. Pertinent positive and negative findings as mentioned in the HPI. Physical Exam Vitals & Measurements T: 36.8 ?C(Oral) HR: 78(Peripheral) RR: 18 BP: 134/84 SpO2: 97% HT: 172.72 cm WT: 79.5 kg BMI: 26.65 GENERAL APPEARANCE: Well developed, well nourished, alert and cooperative, and appears to be in no acute distress. HEAD: normocephalic, atraumatic EYES: PERRL, EOMI. Vision is grossly intact. EARS: External auditory canals clear, hearing grossly intact. NOSE: No nasal discharge. THROAT: Oral cavity and pharynx normal. Oral mucosa moist. CARDIAC: Normal heart sounds, no murmurs. Rhythm is regular. LUNGS: Clear to auscultation without rales, rhonchi, wheezing or diminished breath sounds. MUSCULOSKELETAL: No significant edema or ecchymosis noted noted to patient's L lateral malleolus. Though there is tenderness to this area. Increased pain with dorsiflexion and plantarflexion of the L foot. No pain to the patient of the proximal L tibia or fibula. Range of motion, strength, sensation, neurovascular intact all other extremities without pain or tenderness, distal pulses 2+. NEUROLOGICAL: CN grossly intact. Strength and sensation symmetric and intact throughout. SKIN: Skin normal color, texture and turgor with no lesions or eruptions. Assessment/Plan 1. Ankle sprain (S93.409A: Sprain of unspecified ligament of unspecified ankle, initial encounter) Orders: XR Ankle 3+ Views Left 58-year-old female presents to the ED complaint of left ankle pain after rolling his ankle in a pothole. In the ED patient is afebrile, vital signs are stable, no acute distress. X-ray shows no evidence of acute fracture. Patient educated results and supportive care. At home with instructions to follow with PCP and [employer] [facility]. Patient is to return to the ED with any new or worsening symptoms. Patient voices understanding and is agreeable to plan. Disposition Plan Patient Discharge Condition improved, stable Discharge Disposition to home Discharge Prescription List Prescriptions No active prescription medications Follow-up With When Contact Information Occupational Health: [facility] [place] [phone] In 3 days 06/19/2023 EDT Additional Instructions: Denis RAHMAN In 3 days [address] [facility] [place] [address] [phone] Business (1) Additional Instructions: Patient Education Ankle Sprain Attestation Patient was treated and evaluated by the Physician [place] Opener. The attending physician was in the Emergency Department at all times and supervised care. The case was discussed with the attending physician and diagnostics were reviewed as needed. Problem List/Past Medical History Ongoing Acid reflux Arthritis BMI 26.0-26.9,adult Carpal tunnel syndrome Cervical disc prolapse with radiculopathy Cervical spinal stenosis Cough with fever COVID-19 virus infection Extremity numbness Gout flare Otalgia of right ear Other sleep disorders Periorbital edema Periorbital erythema Right foot pain Sacroiliac pain Situational anxiety Smoker Sore throat TMJ arthralgia Witnessed episode of apnea Historical herniated disc Procedure/Surgical History Radiofrequency ablation of medial branch of lumbar nerve using fluoroscopic guidance (11/21/2015), Radiofrequency ablation of medial branch of lumbar nerve using fluoroscopic guidance (11/07/2015), Medial Branch Block (03/07/2015), Injection of facet joint using fluoroscopic guidance (03/24/2014), Epidural injection of cervical spine using fluoroscopic guidance (05/04/2013), Radiofrequency ablation of medial branch of lumbar nerve using fluoroscopic guidance (03/23/2013), Epidural injection of cervical spine using fluoroscopic guidance (01/26/2013), Epidural injection of cervical spine using fluoroscopic guidance (01/12/2013), Epidural injection of cervical spine using fluoroscopic guidance (12/20/2012), Injection of facet joint using fluoroscopic guidance (12/18/2012), Injection of facet joint using fluoroscopic guidance (11/03/2012), Epidural injection of lumbar spine using fluoroscopic guidance (06/23/2012), Anterior Cervical disectomy with Fusion C 65-7, Arthroscopy of knee, Hernia repair, Radial keratotomy, RADIO FREQUENCY ABLATIO (more content not included)... Normal [facility] Comment on above: Result Comment: Elec tronically Signed By: Jody Mccann PA-C\.vanesa\Date and Time Signed: 06/16/23 20:03 EDT\.br\Electronically Co-Signed By: Valdemar Fink DO\.vanesa\Date and Time Co-Signed: 06/20/23 07:08 EDT XR Ankle 3+ Views Lefton XR Ankle 3+ Views Left Exam Date/Time: 06/16/2023 19:20 EDT Reason for Exam: Pain Report IMPRESSION: NO DISPLACED FRACTURE OR SIGNIFICANT POSTTRAUMATIC COMPLICATION IDENTIFIED. EXAM: XR Ankle 3+ Views Left DATE: 06/16/2023 6:55 PM CLINICAL HISTORY: Pain. COMPARISON: None available. TECHNIQUE: AP, mediolateral, medial and external oblique radiographs of the left ankle were obtained. FINDINGS: There is no fracture, dislocation, worrisome bone destruction, radiodense foreign bodies, or significant degenerative changes. The visualized joint spaces and ankle mortise are intact. Ordering Provider: Jody Mccann FINAL REPORT Dictated: 06/17/2023 11:29 am Amado Contreras MD Signed (Electronic Signature): 06/17/2023 11:29 am Signed by: Amado Contreras MD Transcribed by: SONI Technologist: TU Technical Comments Radiation Dose: Kar in mGy = na DAP = na Normal [facility] Consent for Treatmenton 06-04 Consent for Treatment [id number] 0TIFF Normal [facility] Discharge Instructionson Discharge Instructions [id number]. 00TIFF Normal [facility] ED Clinical Summaryon 2023 ED Clinical Summary [place] [id number] ED Clinical Summary Person Information Name: PHYLLIS SILVESTRE [facility] Age: 58 Years : 1965 Sex: Male Language: Iraqi PCP: Denis RAHMAN DO Marital Status: Phone: [phone] Visit Id: Visit Reason: Ankle pain-swelling; LFT ANKLE PAIN Speciality: Acuity: 4 Enc Type: Emergency Med Service: Emergency Arrival: 06/16/2023 18:28:42 Discharge: 06/16/2023 20:26:43 LOS: 000 01:58 Checkin: 06/16/2023 18:28:42 Checkout: 06/16/2023 20:26:43 Dispo Type: Home (Routine DC) EVENTS: Event Name Event Status Request Date/Time Start Date/Time Complete Date/Time Arrive Complete 06/16/2023 18:28:42 06/16/2023 18:28:42 06/16/2023 18:28:42 Document Home Meds Request 06/16/2023 18:28:42 Triage Complete 06/16/2023 18:28:42 06/16/2023 18:38:32 06/16/2023 18:38:32 Workers Comp Request 06/16/2023 18:38:33 Bed Assign Complete 06/16/2023 18:46:36 06/16/2023 18:46:36 06/16/2023 18:46:36 Dr Exam Complete 06/16/2023 18:46:36 06/16/2023 18:47:11 06/16/2023 18:47:11 RN Exam Complete 06/16/2023 18:46:36 06/16/2023 19:04:19 06/16/2023 19:04:19 Registration Complete 06/16/2023 18:47:11 06/16/2023 19:15:55 06/16/2023 19:15:55 X-Ray Complete 06/16/2023 18:48:22 06/16/2023 18:55:45 06/16/2023 19:20:48 Dr Exam Complete 06/16/2023 18:54:41 06/16/2023 18:54:41 06/16/2023 18:54:41 Reg Complete Request 06/16/2023 19:15:55 Reg Bed Request Complete 06/16/2023 19:15:55 06/16/2023 19:15:55 06/16/2023 19:15:55 Wet Read Request 06/16/2023 19:20:48 Discharge Complete 06/16/2023 19:46:26 06/16/2023 20:26:47 06/16/2023 20:26:47 Transfer Complete 06/16/2023 20:26:47 06/16/2023 20:26:47 06/16/2023 20:26:47 ADDRESS: [address] [place] [address] [id number] PHYS DOC NOTES: MEDICAL INFORMATION: Prescriptions Given: Medications to Continue with No Changes Other Medications tizanidine (tiZANidine 4 mg Tab) 1 Tablets By Mouth 3 times a day as needed Spasm. Refills: 1. PATIENT EDUCATION INFORMATION: Instructions: Ankle Sprain Follow up: With: Address: When: Occupational Health: [facility] [place] [phone] In 3 days 06/19/2023 With: Address: When: Denis RAHMAN [address], [facility] [place] [address] [phone] Business (1) In 3 days DIAGNOSIS: 1:Ankle sprain Normal [facility] ED Patient Education Noteon 06-16-2023 ED Patient Education Note Orthopedics Ankle Sprain An ankle sprain is a stretch or tear in a ligament in the ankle. Ligaments are tissues that connect bones to each other. The two most common types of ankle sprains are: ? Inversion sprain. This happens when the foot turns inward and the ankle rolls outward. It affects the ligament on the outside of the foot (lateral ligament). ? Eversion sprain. This happens when the foot turns outward and the ankle rolls inward. It affects the ligament on the inner side of the foot (medial ligament). What are the causes? This condition is often caused by accidentally rolling or twisting the ankle. What increases the risk? You are more likely to develop this condition if you play sports. What are the signs or symptoms? Symptoms of this condition include: ? Pain in your ankle. ? Swelling. ? Bruising. This may develop right after you sprain your ankle or 1?2 days later. ? Trouble standing or walking, especially when you turn or change directions. How is this diagnosed? This condition is diagnosed with: ? A physical exam. During the exam, your health care provider will press on certain parts of your foot and ankle and try to move them in certain ways. ? X-ray imaging. These may be taken to see how severe the sprain is and to check for broken bones. How is this treated? This condition may be treated with: ? A brace or splint. This is used to keep the ankle from moving until it heals. ? An elastic bandage. This is used to support the ankle. ? Crutches. ? Pain medicine. ? Surgery. This may be needed if the sprain is severe. ? Physical therapy. This may help to improve the range of motion in the ankle. Follow these instructions at home: If you have a brace or a splint: ? Wear the brace or splint as told by your health care provider. Remove it only as told by your health care provider. ? Loosen the brace or splint if your toes tingle, become numb, or turn cold and blue. ? Keep the brace or splint clean. ? If the brace or splint is not waterproof: ? Do not let it get wet. ? Cover it with a watertight covering when you take a bath or a shower. If you have an elastic bandage (dressing): ? Remove it to shower or bathe. ? Try not to move your ankle much, but wiggle your toes from time to time. This helps to prevent swelling. ? Adjust the dressing to make it more comfortable if it feels too tight. ? Loosen the dressing if you have numbness or tingling in your foot, or if your foot becomes cold and blue. Managing pain, stiffness, and swelling ? Take maea-kxt-yabveor and prescription medicines only as told by your health care provider. ? For 2?3 days, keep your ankle raised (elevated) above the level of your heart as much as possible. ? If directed, put ice on the injured area: ? If you have a removable brace or splint, remove it as told by your health care provider. ? Put ice in a plastic bag. ? Place a towel between your skin and the bag. ? Leave the ice on for 20 minutes, 2?3 times a day. General instructions ? Rest your ankle. ? Do not use the injured limb to support your body weight until your health care provider says that you can. Use crutches as told by your health care provider. ? Do not use any products that contain nicotine or tobacco, such as cigarettes, e-cigarettes, and chewing tobacco. If you need help quitting, ask your health care provider. ? Keep all follow-up visits as told by your health care provider. This is important. Contact a health care provider if: ? You have rapidly increasing bruising or swelling. ? Your pain is not relieved with medicine. Get help right away if: ? Your foot or toes become numb or blue. ? You have severe pain that gets worse. Summary ? An ankle sprain is a stretch or tear in a ligament in the ankle. Ligaments are tissues that connect bones to each other. ? This condition is often caused by accidentally rolling or twisting the ankle. ? Symptoms include pain, swelling, bruising, and trouble walking. ? To relieve pain and swelling, put ice on the affected ankle, raise your ankle above the level of your heart, and use an elastic bandage. ? Keep all follow-up visits as told by your health care provider. This is important. This information is not intended to replace advice given to you by your health care provider. Make sure you discuss any questions you have with your health care provider. Document Revised: 05/16/2021 Document Reviewed: 05/16/2021 Elsevier Patient Education ? 2022 [employer] Normal [facility] ED Patient Summaryon 024 ED Patient Summary [place] [id number] Patient Discharge Instructions Person Information Name: PHYLLIS SILVESTRE Age: 58 Years Arrival Date: 06/16/2023 18:28:42 Discharge Diagnosis: 1:Ankle sprain Primary Care Physician: Denis RAHMAN DO Provider Information Primary Provider: Valdemar Fink DO Advanced Mysql Database Developer:Jody Mccann PA-C The exam and treatment you received in the Emergency Department were for an urgent problem and are not intended as complete care. It is important that you follow up with a doctor, nurse practitioner, or physician?s department assistant for ongoing care. If your symptoms become worse or you do not improve as expected and you are unable to reach your usual health care provider, you should return to the Emergency Department. We are available 24 hours a day. PHYLLIS SILVESTRE has been given the following list of patient education materials, prescriptions and follow-up instructions: Follow-up Instructions: With: Address: When: Occupational Health: [facility] [place] [facility] [phone] In 3 days 06/19/2023 With: Address: When: Denis RAHMAN [address] [facility] [facility] [place] [address] [phone] Business (1) In 3 days In the event that this physician does not participate in your insurance network, please consult with your insurance company to find a nearby participating provider. Patient Education Materials: Ankle Sprain A MESSAGE TO ALL PATIENTS REGARDING OPIOIDS PRESCRIPTION OPIOIDS: WHAT YOU NEED TO KNOW Prescription opioids can be used to help relieve eznizijb-st-apfupw pain and are often prescribed following a surgery or injury, or for certain health conditions. These medications can be an important part of the treatment but also come with serious risks. It is important to work with your healthcare provider to make sure you are getting the safest, most effective care. WHAT ARE THE RISKS AND SIDE EFFECTS OF OPIOID USE? Prescription opioids carry serious risks of addiction and overdose, especially with prolonged use. An opioid overdose, often marked by slowed breathing, can cause sudden . The use of prescription opioids can have a number of side effects as well, even when taken as directed: ? Tolerance?meaning you might need to take more of the medication for the same pain relief ? Physical dependence?meaning you have symptoms of withdrawal when a medication is stopped ? Increased sensitivity to pain ? Constipation ? Nausea, vomiting, and dry mouth ? Sleepiness and dizziness ? Confusion ? Depression ? Low levels of testosterone that can result in lower sex drive, energy, and strength ? Itching and sweating RISKS ARE GREATER WITH: ? History of drug misuse, substance use disorder, or overdose ? Mental health conditions (such as depression or anxiety) ? Sleep apnea ? Older age (65 years and older) ? Avoid alcohol while taking prescription opioids. Also, unless specifically advised by your health care provider, medications to avoid include: ? Benzodiazepines (such as Xanax or Valium) ? Muscle relaxants (such as Soma or Flexeril) ? Hypnotics (such as Ambien or Lunesta) ? Other prescription opioids KNOW YOUR OPTIONS Talk to your health care provider about ways to manage your pain that don?t involve prescription opioids. Some of these options may actually work better and have fewer risks and side effects. Options may include: ? Pain relievers such as acetaminophen, ibuprofen, and naproxen ? Some medication that are also used for depression or seizures ? Physical therapy and exercise ? Cognitive behavioral therapy, a psychological, goal-directed approach, in which patients learn how to modify physical, behavioral, and emotional triggers of pain and stress. IF YOU ARE PRESCRIBED OPIOIDS FOR PAIN: ? Never take opioids in greater amounts or more often than prescribed. ? Follow up with your primary health care provider. o Work together to create a plan on how to manage your pain. o Talk about ways to help manage your pain that don?t involve prescription opioids. o Talk about any and all concerns and side effects. ? Help prevent misuse and abuse o Never sell or share prescription opioids. o Never use another person?s prescription opioids. ? Store prescription opioids in a secure place and out of reach of others (this may include visitors, children, friends, and family). ? Safely dispose of unused prescription opioids: Find your community drug take-back program or your pharmacy mail-back program, or flush them down the toilet, following guidance from the Food and Drug Administration (www.fda.gov/Drugs/Res ourcesForYou). ? Visit www.cdc.gov/drugoverdo se to learn about the risks of opioids abuse and overdose. ? If you believe you may be struggling with addiction, tell your health dialysis patient care technician and ask for guidance o (more content not included)... [facility] Workers Comp [employer] 024 Workers Comp Forms [id number]. 00TIFF [facility] Family Medicine Office/Clini c Noteon 05-31-2023 Family Medicine Office/Clinic Note Chief Complaint cough, fever, body aches, headaches. HPI Staff 57 year old male presents with headache, chills, body aches, cough, fever, fatigue, pt states his tested positive for covid on thursday. Symptoms started 05/20 History of Present Illness Reviewed and agree with above documented HPI by medical office secretary. Portions of this record may have been created with voice recognition artificial intelligence software, specifically [employer], [employer] and or [employer]. Substitutions may have occurred due to the inherent limitations of voice recognition and artificial intelligence software. Patient is a 57-year-old male who presents to [facility] care, for nonproductive cough, body aches, sinus headache, chills, fever, and fatigue. Patient states symptoms started last week Thursday, worsening symptoms as since past Thursday, on the of this month, states his was tested positive for COVID-19. Patient states he is unable to take gezp-qzv-ynzjbwa ibuprofen and Tylenol because it is his GERD, has been drinking plenty water, patient states symptoms are slightly improving, he is able to eat and drink, has a sense of taste and smell, has no discomfort swallowing, denies any history of smoking, vaping, asthma, bronchitis. Patient denies any worsening headache, worsening body aches, additional chills, any high fevers, difficulty swallowing, productive cough, worsening cough, chest pain, dyspnea exertion, or weakness. Review of Systems PHQ Score Initial Depression Screen Score: 0 SCORE Physical Exam Vitals & Measurements T: 37 ?C(Oral) HR: 82(Peripheral) RR: 16 BP: 126/74 SpO2: 98% HT: 68 in HT: 173 cm WT: 80.1 kg WT: 176.22 lb BMI: 26.76 General: Well developed, well nourished, in no acute distress. Patient does appear ill but not septic. No respiratory disorders noted. Patient answers questions appropriately and in complete sentences, follows commands appropriately. Head: Normocephalic/atraumat ic. Positive upper respiratory infections noted. No sinus infections noted. Eyes: Pupils equal, round, and reactive to light. Conjunctivae and sclerae normal, Ears: Bilateral TMs and bilateral external canals are both within normal limits. Hearing is intact. Nose: No deformity, discharge, inflammation, or lesions Mouth: Mucous membranes moist. Normal oropharynx, and posterior pharynx without erythema and without exudates or lesions. No trismus. No difficulty swallowing. Neck: Neck supple. No masses or palpable cervical nodes. Trachea midline. Lungs: Normal respiratory effort and clear to auscultation throughout, no wheezing, rales, crackles, rhonchi, or decreased breath sounds. Cardio: regular rate and rhythm, no murmur. No chest wall tenderness. Extremity: Patient is able to move all 4 extremities equally without pain or weakness. Neurologic: Grossly normal Skin: No rashes, ulcerations, or suspicious lesions Lymph Nodes: no lad Mental Status: alert, active Assessment/Plan Swabs for COVID-19, influenza A, and influenza B. No strep for strep pharyngitis. No breathing treatment or chest imaging were indicated at this time. Discuss with patient he is positive for COVID-19, negative for influenza A and B. 57-year-old male presents to [facility], for positive COVID-19 virus infection, this past weekend, patient is out of the window to be treated for COVID-19, patient did appear ill but not septic, no respiratory distress, or difficulty swallowing, and to take gfhq-dbn-fnqpxdu ibuprofen Tylenol as needed for body aches, headache, fever. Drink plenty water stay hydrated. Declined a work excuse note. Follow-up with primary care provider. 1. COVID-19 virus infection (U07.1: COVID-19) See above 2. BMI 26.0-26.9,adult (Z68.26: Body mass index [BMI] 26.0-26.9, adult) The standard range for ages 18 and older is >=18.5 and < 25 kg/m2. Your BMI today was above this range, this falls in the overweight to obese category and there are medical benefits to weight loss. We can offer counselling, referral, and/or medical support in addressing this problem. Your BMI and weight management will be followed at subsequent visits. Orders: Influenza Type A&B POC 48033 Rapid COVID POC 57995 Follow-up With When Contact Information Denis RAHMAN DO, MAHSA [address] [facility] [place] [address]- Additional Instructions: Patient Education BMI for Adults COVID-19 Problem List/Past Medical History Ongoing Acid reflux Arthritis BMI 26.0-26.9,adult Carpal tunnel syndrome Cervical disc prolapse with radiculopathy Cervical spinal stenosis Cough with fever COVID-19 virus infection Extremity numbness Gout flare Otalgia of right ear Other sleep disorders Periorbital edema Periorbital erythema Right foot pain Sacroiliac pain Situational anxiety Smoker Sore throat TMJ arthralgia Witnessed episode of apnea Historical herniated disc Procedure/Surgical History Ra (more content not included)... Normal [facility] Comment on above: Result Comment: Elec tronically Signed By: SUPRIYA TIERNEY PA-C\.br\Date and Time Signed: 05/31/23 13:15 EST Ambulatory Visit Summaryon 0 05-28-2023 Ambulatory Visit Summary PHYLLIS SILVESTRE :1965 Visit Date:05/28/2023 Ambulatory Visit Instructions Your Diagnosis Viral illness Your Care Team Attending Physician - SUPRIYA TIERNEY PA-C Primary Care Physician - Denis RAHMAN DO This Is Your Medications List tizanidine (tiZANidine 4 mg Tab) Procedures Performed Radiofrequency ablation of medial branch of lumbar nerve using fluoroscopic guidance (11/21/2015), Radiofrequency ablation of medial branch of lumbar nerve using fluoroscopic guidance (11/07/2015), Medial Branch Block (03/07/2015), Injection of facet joint using fluoroscopic guidance (03/24/2014), Epidural injection of cervical spine using fluoroscopic guidance (05/04/2013), Radiofrequency ablation of medial branch of lumbar nerve using fluoroscopic guidance (03/23/2013), Epidural injection of cervical spine using fluoroscopic guidance (01/26/2013), Epidural injection of cervical spine using fluoroscopic guidance (01/12/2013), Epidural injection of cervical spine using fluoroscopic guidance (12/20/2012), Injection of facet joint using fluoroscopic guidance (12/18/2012), Injection of facet joint using fluoroscopic guidance (11/03/2012), Epidural injection of lumbar spine using fluoroscopic guidance (06/23/2012), Anterior Cervical disectomy with Fusion C 65-7, Arthroscopy of knee, Hernia repair, Radial keratotomy, RADIO FREQUENCY ABLATIONS, STEROID EPIDURAL INJECTIONS. Discharge Vitals Temperature (Oral) 37 ?C Heart Rate (Peripheral) 82 Respiratory Rate 16 Blood Pressure 126/74 Height 173 cm Height 68 in Weight 80.1 kg Weight 176.22 lb BMI 26.76 Medications What How Much When Instructions Unchanged tizanidine (tiZANidine 4 mg Tab) 1 Tablets By Mouth 3 times a day as needed for Spasm Allergies Compazine (unknown) NSAIDs (Esophageal Reflux) Reglan Problems Ongoing - Any problem that you are currently receiving treatment for. Acid reflux Arthritis BMI 25.0-25.9,adult Carpal tunnel syndrome Cervical disc prolapse with radiculopathy Cervical spinal stenosis Cough with fever Extremity numbness Gout flare Otalgia of right ear Other sleep disorders Periorbital edema Periorbital erythema Right foot pain Sacroiliac pain Situational anxiety Smoker Sore throat TMJ arthralgia Witnessed episode of apnea Historical - Any problem that you are no longer receiving treatment for. herniated disc Patient Survey You may receive a survey via text or e-mail asking about your office visit. Please share your experience with us by completing your survey. We appreciate your feedback and thank you for choosing us for your care. Normal Hernandez [facility] [address] [place] [address] May 28, 2023 PHYLLIS SILVESTRE [address] [place] [id number] : 1965 Please excuse PHYLLIS SILVESTRE from work . Date and/or Time of Absence: From: 05/28/23 May return to work on: 06/01/23 Restrictions: None Comments: Please excuse due to an acute illness. Provider Signature: Supriya Tierney PA-C [address] [place] [address] [place] [address] Normal [facility] Consenton 01-20-2023 Consent [id number]. 00TIFF Normal [facility] Registrationon 01-20-2023 Registration [id number]. 00TIFF Normal [facility] XR pre/post mri xrayon 10-23 XR pre/post mri xray [facility] Main [address] [address] MRI Report Signed Patient: Phyllis Silvestre MR#: [id number] : 1965 Acct:[id number] Age/Sex: 57 / M ADM Date: 10/22/22 Loc: Room: Type: [facility] Attending Dr: Kevin Calvillo DPM Copies to: Kevin Calvillo DPM Ordering Provider: Kevin Calvillo DPM Date of Service: 10/22/22 MR/MR foot LT wo/w con: PLANTAR FASCIAL FIBROMASTOSIS ([id number]) XR/XR pre/post mri xray: PRE FOOT MR foot LT wo/w con, XR pre/post mri xray 10/22/2022 7:14 PM SIGNS AND SYMPTOMS: PLANTAR FASCIAL FIBROMASTOSIS, pain from the mid foot to heal PROTOCOL: Multiplanar multisequence MR images of the left foot were obtained with and without IV contrast. Frontal, lateral, and oblique radiographs of the left foot were obtained. CONTRAST: 16 mL of intravenous ProHance COMPARISON: None. FINDINGS: Left foot radiographs: The bones are in anatomic alignment. There is preservation of the joint spaces. There is no fracture or dislocation. There is plantar surface calcaneal spurring. The soft tissue marker overlies the medial aspect of the plantar soft tissues. No underlying soft tissue edema or swelling. No abnormal radiopaque foreign body. MRI left foot with and without contrast: Lisfranc ligament: Intact. Hallux: Osseous: Normal. Extensor tendon: Normal. Flexor tendon: Normal. Second ray: Osseous: Normal. Extensor tendon: Normal. Flexor tendon: Normal. Plantar plate: Normal. Third ray: Osseous: Normal. Extensor tendon: Normal. Flexor tendon: Normal. Plantar plate: Normal. Fourth ray: Osseous: Normal. Extensor tendon: Normal. Flexor tendon: Normal. Plantar plate: Normal. Fifth ray: Osseous: Normal. Extensor tendon: Normal. Flexor tendon: Normal. Plantar plate: Normal. Soft tissues: Edema and enhancement is noted along the medial aspect of the origin of the plantaris fascia consistent with plantar fasciitis. There is no evidence of mass or fibrosis. Muscles: Normal. Bones: Normal. Nerves: Normal. Blood vessels: Normal. MR/MR foot LT wo/w con IMPRESSION: Edema and enhancement is noted along the medial aspect of the origin of the plantaris fascia consistent with plantar fasciitis. There is no evidence of mass or fibrosis. This is accompanied by plantar surface calcaneal spurring on radiographs. Impression dictated by: Ronald Galdamez M.D.10/23/2022 9:57 AM Dictation Location: [place] [address] Transcribed By: [facility] 10/23/22 0957 Dictated By: Ronald Galdamez II, MD 10/23/22 0947 Signed By: 10/23/22 0957 [facility] Encounters Encounter Date Encounter Type Care Provider Facility Start: 12-18-2023 End: 12-18-2023 ambulatory NICKI DIALLO Not Available Start: 08-06-2023 End: 08-07-2023 ambulatory Nicki Wells Facility:[facility] Start: 08-02-2023 End: 08-03-2023 ambulatory Geoffrey Downing Facility:[facility] Start: 06-22-2023 ambulatory Ute GRAJEDA [facility] Start: 06-16-2023 End: 06-16-2023 Emergency department patient visit Valdemar Fink Facility:[facility] Start: 06-16-2023 End: 06-17-2023 ambulatory Jass RICO [facility] Start: 05-28-2023 End: 05-29-2023 ambulatory ALVAREZ TIERNEY Facility:[facility] Start: 01-20-2023 End: 01-21-2023 ambulatory Jass AR[place]LEY [place] [facility] Start: 10-22-2022 End: 10-22-2022 ambulatory Kevin Rajinder Facility:[facility] Start: 10-22-2022 End: 10-22-2022 ambulatory DO Denis Rahman Work Phone: [facility] Work Phone: Start: 10-22-2022 End: 10-22-2022 Patient encounter procedure DO Denis Rahman Work Phone: [facility] [place] Work Phone: Plan of Treatment Date Care Activity Detail Author Start: 10-22-2022 XR pre/post mri xray XR pre/post mri xray [facility] Start: 10-22-2022 [facility] Start: 10-22-2022 MR Foot - left WO an d W contrast IV [facility] Start: 10-22-2022 MRI of left foot wit h contrast MR foot LT wo/w con [facility] Payers Date Payer Category Payer Worker's Compensation [id number] Worker's Compensation [id number] 2022 Self-pay 2022 Unknown [id number] 1965 Unknown [id number] 2.16.8 [id number] 1965 Unknown [id number] 2.16.8 [id number] 1965 Unknown [id number] 2.16.8 [id number] 1965 Unknown [id number] 2.16.8 [id number] 1965 Unknown [id number] 2.16.8 [id number] 1965 Unknown [id number] 2.16.8 [id number] 1965 Unknown [id number] 2.16.8 [id number] 1965 Unknown [id number] 2.16.84 [id number] 1965 Unknown [id number] 2.16.84 [id number] Unknown [id number] 2.16.8 [id number] Unknown Laurent RAMOS/SEBASTIAN [id number] Social History Date Type Detail Facility Tobacco smoking stat [facility] Unknown if ever smoked [facility] Work Phone: Start: 1965 Sex Assigned At Male [facility] Clinical Note 05-31-2023 Note Date & Type Note Facility 05-31-2023 Note Infectious Disease COVID-19 COVID-19, or coronavirus disease 2019, is an infection that is caused by a new (novel) coronavirus called SARS-CoV-2. COVID-19 can cause many symptoms. In some people, the virus may not cause any symptoms. In others, it may cause mild or severe symptoms. Some people with severe infection develop severe disease. What are the causes? This illness is caused by a virus. The virus may be in the air as tiny specks of fluid (aerosols) or droplets, or it may be on surfaces. You may catch the virus by: ? Breathing in droplets from an infected person. Droplets can be spread by a person breathing, speaking, singing, coughing, or sneezing. ? Touching something, like a table or a doorknob, that has virus on it (is contaminated) and then touching your mouth, nose, or eyes. What increases the risk? Risk for infection: You are more likely to get infected with the COVID-19 virus if: ? You are within 6 ft (1.8 m) of a person with COVID-19 for 15 minutes or longer. ? You are providing care for a person who is infected with COVID-19. ? You are in close personal contact with other people. Close personal contact includes hugging, kissing, or sharing eating or drinking utensils. Risk for serious illness caused by COVID-19: You are more likely to get seriously ill from the COVID-19 virus if: ? You have cancer. ? You have a long-term (chronic) disease, such as: ? Chronic lung disease. This includes pulmonary embolism, chronic obstructive pulmonary disease, and cystic fibrosis. ? Long-term disease that lowers your body's ability to fight infection (immunocompromise). ? Serious cardiac conditions, such as heart failure, coronary artery disease, or cardiomyopathy. ? Diabetes. ? Chronic kidney disease. ? Liver diseases. These include cirrhosis, nonalcoholic fatty liver disease, alcoholic liver disease, or autoimmune hepatitis. ? You have obesity. ? You are or were recently . ? You have sickle cell disease. What are the signs or symptoms? Symptoms of this condition can range from mild to severe. Symptoms may appear any time from 2 to 14 days after being exposed to the virus. They include: ? Fever or chills. ? Shortness of breath or trouble breathing. ? Feeling tired or very tired. ? Headaches, body aches, or muscle aches. ? Runny or stuffy nose, sneezing, coughing, or sore throat. ? New loss of taste or smell. This is rare. Some people may also have stomach problems, such as nausea, vomiting, or diarrhea. Other people may not have any symptoms of COVID-19. How is this diagnosed? This condition may be diagnosed by testing samples to check for the COVID-19 virus. The most common tests are the PCR test and the antigen test. Tests may be done in the lab or at home. They include: ? Using a swab to take a sample of fluid from the back of your nose and throat (nasopharyngeal fluid), from your nose, or from your throat. ? Testing a sample of saliva from your mouth. ? Testing a sample of coughed-up mucus from your lungs (sputum). How is this treated? Treatment for COVID-19 infection depends on the severity of the condition. ? Mild symptoms can be managed at home with rest, fluids, and [id number]-[id number] medicines. ? Serious symptoms may be treated in a hospital intensive care unit (ICU). Treatment in the ICU may include: ? Supplemental oxygen. Extra oxygen is given through a tube in the nose, a face mask, or a elmore. ? Medicines. These may include: ? Antivirals, such as monoclonal antibodies. These help your body fight off certain viruses that can cause disease. ? Anti-inflammatories, such as corticosteroids. These reduce inflammation and suppress the immune system. ? Antithrombotics. These prevent or treat blood clots, if they develop. ? Convalescent plasma. This helps boost your immune system, if you have an underlying immunosuppressive condition or are getting immunosuppressive treatments. ? Prone positioning. This means you will lie on your stomach. This helps oxygen to get into your lungs. ? Infection control measures. If you are at risk for more serious illness caused by COVID-19, your health care provider may prescribe two long-acting monoclonal antibodies, given together every 6 months. How is this prevented? To protect yourself: ? Use preventive medicine (pre-exposure prophylaxis). You may get pre-exposure prophylaxis if you have moderate or severe immunocompromise. ? Get vaccinated. Anyone 6 months old or older who meets guidelines can get a COVID-19 vaccine or vaccine series. This includes people who are or making breast milk (lactating). ? Get an added dose of COVID-19 vaccine after your first vaccine or vaccine series if you have moderate to severe immunocompromise. This applies if you have had a solid organ transplant or have been diagnosed with an immunocompromising condition. ? You should (more content not included)... [facility] Evaluation note Note Date & Type Note Facility Evaluation note No assessment information availa [place] Work Phone: Summary Purpose Family History No Family History Records FoundNo Family History Records FoundNo Family History Records FoundNo Family History Records Found Advance Directives No Advanced Directives Records Found Advance Directive Response Recorded Date/ Time Advance Directives No October 01 8:02am Chief Complaint and Reason for Visit Chief Complaint plantar fascial fibr omatosis Additional Source Comments (unrecognized sect ion and content) No Status Records FoundNo Status Records FoundNo Status Records FoundNo Status Records Found INFORMATION SOURCE (unrecogn ized section and content) DATE CREATED AUTHOR 10/23/2022 [facility] DATE CREATED AUTHOR AUTHOR'S ORGANIZ ATION [facility]20[facility] DATE CREATED AUTHOR AUTHOR'S ORGANIZ ATION 08/17/2023 [facility] DATE CREATED AUTHOR AUTHOR'S ORGANIZ ATION 12/20/2023 [facility] [employer] Care Teams (unrecognized sec tion and content) Team Status: Active Member Role Status Dates Denis Rahman , DO Family Provider Active Denis Rahman , DO Primary Care Provider Active Team Status: Inactive Member Role Status Dates Denis Rahman , DO Primary Care Provider, Family Pro vider Active Kevin Calvillo DPM Attending Provider Active Goals (unrecognized section and content) Goals may be documented in a n alternate section FOR RECORDS PERTAINING TO PATIENTS WHO ARE OR HAVE BEEN ENROLLED IN A CHEMICAL DEPENDENCY/SUBSTANCEABUSE PROGRAM, SOME INFORMATION MAY BE OMITTED. This clinical summary was aggregated from multiple sources. Caution should be exercised in using it in the provision of clinical care. This summary normalizes information from multiple sources, and as a consequence, information in this document may materially change the coding, format and clinical context of patient data. In addition, data may be omitted in some cases. CLINICAL DECISIONS SHOULD BE BASED ON THE PRIMARY CLINICAL RECORDS. [facility]. provides no warranty or guarantee of the accuracy or completeness of information in this document.
== END 2024-02-17 13:50 | disposition home or self-care (01) ==
LOC: RAD 13:50
PROVIDERS: Family Provider Family Medicine; PCP Family Medicine; Visit Provider Podiatrist Foot & Ankle Surgery
DX: M79.671 Pain in right foot (principal)
CPT/HCPCS: 73630